=== PATIENT | female | born 1955 | race Caucasian/White ===

== ENCOUNTER 2017-04-10 03:10 | Emergency (ER) | payer MEDICARE, OTHER ==
[2017-04-10 03:32] VITALS: BP 135/61
[2017-04-10] MEDS ORDERED: PROMETHAZINE HCL INJ 50 MG/1 ML VIAL IM ONE (03:43)
--- NOTE | 2017-04-10 03:50 | ER Document Report ---
ED General - General Chief Complaint: Abdominal Pain Stated Complaint: ABDOMINAL PAIN Time Seen by Provider: 04/10/17 03:31 Notes: Patient is a 61-year-old female who presents with complaint of upper abdominal pain and some vomiting. Patient says that she is on chronic pain medicines to help her deal with this. She said she has history of chronic recurrent pancreatitis. She denies any recent fevers or infections. She says that she is on pain management because of a history of exposures to pesticides which left her with burning type pain throughout her entire body and recurrent pancreatitis and abdominal pain. She says that she moved here a year ago. She was switched to [facility] but they would not prescribe her Valium for her and therefore she has not follow-up with them anymore. She says that she is supposed to be on oxycodone, Percocet, and Valium. She also takes Phenergan. She says that she has many medical allergies but she does not remember the names. She says she knows what she can take and what she should be on. She has brought her back medications. She also appears to be on Lasix. She has approximately 10 bottles in her back. Most of the bottles are empty bottles from oxycodone or Valium. Her lasix bottle is the only bottle that has medication in it. Past Medical History - Social History Smoking Status: Current Some Day Smoker Chew tobacco use (# tins/day): No Frequency of alcohol use: None Drug Abuse: None Family History: Reviewed & Not Pertinent Pulmonary Medical History: Reports: Hx Asthma, Hx COPD - Immunizations Hx Diphtheria, Pertussis, Tetanus Vaccination: Yes Review of Systems - Review of Systems Notes: My Normal Review Basic REVIEW OF SYSTEMS: CONSTITUTIONAL : Denies fever, chills, or sweats. Denies recent illness. CARDIOVASCULAR: Denies chest pain. RESPIRATORY: Denies cough, cold, or chest congestion. Denies shortness of breath, difficulty breathing, or wheezing. GASTROINTESTINAL: Epigastric abdominal pain. Some vomiting GENITOURINARY: Denies difficulty urinating, painful urination, burning, frequency, or blood in urine. FEMALE GENITOURINARY: Denies vaginal bleeding, abnormal or irregular periods. LMP: MUSCULOSKELETAL: Denies neck or back pain or joint pain or swelling. SKIN: Denies rash or skin lesions. NEUROLOGICAL: Denies altered mental status or loss of consciousness. Denies headache. Denies weakness or paralysis or loss of use of either side. Denies problems with gait or speech. Denies sensory or motor loss. ALL OTHER SYSTEMS REVIEWED AND NEGATIVE. Physical Exam - Vital signs Vitals: Temp Pulse Resp BP Pulse Ox 97.9 F 105 H 20 135/61 H 97 04/10/17 03:31 04/10/17 03:31 04/10/17 03:31 04/10/17 03:31 04/10/17 03:31 - Notes Notes: General Appearance: Well nourished, alert, cooperative, no acute distress, no obvious discomfort. Vitals: reviewed, See vital signs table. Head: no swelling or tenderness to the head Eyes: PERRL, EOMI, Conjuctiva clear Mouth: No decreasd moisture Throat: No tonsillar inflammation, No airway obstruction, No lymphadenopathy Neck: Supple, no neck tenderness, No thyromegaly Lungs: No wheezing, No rales, No rhonci, No accessory muscle use, good air exchange bilaterally. Heart: Normal rate, Regular rythm, No murmur, no rub Abdomen: Normal BS, soft, No rigidity, mild epigastric abdominal tenderness to palpation, No guarding, no rebound, no abdominal masses, no organomegaly Extremities: strength 5/5 in all extremities, good pulses in all extremities, no swelling or tenderness in the extremities, no edema. Skin: warm, dry, appropriate color, no rash Neuro: speech clear, oriented x 3, normal affect, responds appropriately to questions. Course - Vital Signs Vital signs: Temp Pulse Resp BP Pulse Ox 97.9 F 105 H 20 135/61 H 97 04/10/17 03:31 04/10/17 03:31 04/10/17 03:31 04/10/17 03:31 04/10/17 03:31 - Laboratory Result Diagrams: 04/10/17 03:50 04/10/17 03:50 Laboratory results interpreted by me: 04/10/17 04/10/17 03:50 04:05 Potassium 3.5 L BUN 27 H Calcium 10.4 H Urine Protein 100 H Urine Ketones 20 H Urine Blood MODERATE H - Transfer of Care Notes: 04/10/17 05:54 I suspect that the patient's symptoms are related to her not having her chronic pain meds anymore. She says it has been a few weeks since she has had them. She is not tachycardic. She is requesting to be put back on her chronic pain meds. I informed her that she has to see pain management for continued management of her chronic pain. I do not see an indication currently for opiate pain medications. Her laboratory evaluation is completely normal except for mildly low potassium. She cannot tell me her medical allergies. She can only tell me the medications that she would not want to be on that she feels works for her. When you mention other medications she says that she has many medical allergies and therefore she would not be sure if she was allergic to them. Patient was given Phenergan and she has had this in the past. Prescription for Phenergan as she says this is what she typically takes at home but is out. I strongly encourage her to follow-up with her local pain management doctor, Dr. Sheikh, to discuss further pain management options. Dictation of this chart was performed using voice recognition software; therefore, there may be some unintended grammatical errors. Discharge - Discharge Clinical Impression: Nausea, Hypokalemia Chronic pain Qualifiers: Chronic pain type: chronic pain syndrome Qualified Code(s): G89.4 - Chronic pain syndrome Abdominal pain Qualifiers: Abdominal location: epigastric Qualified Code(s): R10.13 - Epigastric pain Condition: Good Disposition: HOME, SELF-CARE Additional Instructions: Please follow up closely with [facility] and your doctor for reevaluation and for further management of your chronic pain. Please return to the ER if you have fevers, intractable vomiting, or feel that you are worsening. Prescriptions: Promethazine HCl [Phenergan 25 mg Tablet] 1 tab PO Q6H PRN #15 tablet PRN Reason:
[2017-04-10] MEDS ORDERED: PROMETHAZINE HCL INJ 50 MG/1 ML VIAL ONE (03:51)
[2017-04-10 03:57] LABS: ABSOLUTE MONOCYTES (AUTO) 0.8 10^3/uL (0.1-1.4); ABSOLUTE NEUT (AUTO) 5.7 10^3/uL (1.7-8.2); BASOPHILS % (AUTO) 0.4 % (0-2); EOSINOPHILS % (AUTO) 0.3 % (0-6); HEMATOCRIT 39.3 % (36.0-47.0); HEMOGLOBIN 13.8 g/dL (12.0-15.5); HGB HCT DIFFERENCE 2.1; LYMPHOCYTES % (AUTO) 23.3 % (13-45); MEAN CORPUSCULAR HEMOGLOBIN 33.4 pg (27.0-33.4); MEAN CORPUSCULAR VOLUME 95 fl (80-97); MONOCYTES % (AUTO) 9.5 % (3-13); RED BLOOD COUNT 4.12 10^6/uL (3.72-5.28); RED CELL DISTRIBUTION WIDTH 13.6 % (11.5-14.0); SEGMENTED NEUTROPHILS % (AUTO) 66.5 % (42-78); WHITE BLOOD COUNT 8.5 10^3/uL (4.0-10.5)
[2017-04-10 04:14] LABS: ALANINE AMINOTRANSFERASE 24 U/L (9-52); ALBUMIN 4.2 g/dL (3.5-5.0); ALKALINE PHOSPHATASE 80 U/L (38-126); ANION GAP 13 (5-19); ASPARTATE AMINO TRANSFERASE 18 U/L (14-36); BILIRUBIN,DIRECT 0.4 mg/dL (0.0-0.4); BILIRUBIN,TOTAL 0.8 mg/dL (0.2-1.3); BLOOD UREA NITROGEN 27 mg/dL (7-20); CALCIUM 10.4 mg/dL (8.4-10.2); CARBON DIOXIDE 26 mmol/L (22-30); CHLORIDE 104 mmol/L (98-107); CREATININE RESULT 0.71 mg/dL (0.52-1.25); GLUCOSE 107 mg/dL (75-110); LIPASE 50.4 U/L (23-300); POTASSIUM 3.5 mmol/L (3.6-5.0); SODIUM 142.6 mmol/L (137-145); TOTAL PROTEIN 7.4 g/dL (6.3-8.2)
[2017-04-10] MEDS ORDERED: POTASSIUM CHLORIDE 10 MEQ TABLET.SA PO ONE (04:24)
[2017-04-10 04:31] LABS: APPEARANCE,URINE SLIGHTLY-CLOUDY; BILIRUBIN,URINE NEGATIVE (NEGATIVE); GLUCOSE, URINE NEGATIVE (NEGATIVE); KETONES,URINE 20 mg/dL (NEGATIVE); LEUKOCYTE ESTERASE,URINE NEGATIVE (NEGATIVE); NITRITE,URINE NEGATIVE (NEGATIVE); PROTEIN,URINE 100 mg/dL (NEGATIVE); URINE SPECIFIC GRAVITY 1.014; UROBILINOGEN,URINE NEGATIVE mg/dL (<2.0)
== END 2017-04-10 05:10 | disposition home or self-care (01) ==
LOC: ER 03:10
DX: R11.0 Nausea (principal); E87.6 Hypokalemia; G89.4 Chronic pain syndrome; R10.13 Epigastric pain; R10.10 Upper abdominal pain, unspecified; G89.29 Other chronic pain; F17.200 Nicotine dependence, unspecified, uncomplicated; Z79.899 Other long term (current) drug therapy
CPT/HCPCS: 99284; 96372; 36415; 83690; 85025; 80053; 81001; J2550; A9270